=== PATIENT | female | born 1965 | race Caucasian/White ===

== ENCOUNTER 2020-07-17 16:09 | Emergency (ER) | payer BC ==
--- NOTE | 2020-07-17 16:40 | RAD ---
XR Shoulder Rt 3 View STANDARD HISTORY: Injury, right shoulder pain FINDINGS: No fracture or dislocation is identified.
--- NOTE | 2020-07-17 16:44 | RAD ---
Exam: XR Finger(s) Lt Min 2 View HISTORY: Left middle finger deformity after injury. COMPARISON: None FINDINGS: The middle phalanx of the left middle digit is displaced/subluxed laterally and anteriorly with respe ct to the proximal phalanx. No obvious fracture is seen. No other osseous abnormality. IMPRESSION: Mild lateral and anterior displacement/subluxation of the middle phalanx left middle finger in relati on to the proximal phalanx. No obvious fracture is seen.
[2020-07-17] MEDS ORDERED: Lidocaine 1% PF 5 ML VIAL ONE (17:20)
[2020-07-17] MEDS ORDERED: Lidocaine 1% (PF) 30 ML VIAL ONE (17:23)
== END 2020-07-17 18:24 | disposition home or self-care (01) ==
LOC: ERS 16:09
DX: S63.283A Dislocation of proximal interphalangeal joint of left middle finger, initial encounter (principal); S40.011A Contusion of right shoulder, initial encounter; X58.XXXA Exposure to other specified factors, initial encounter
CPT/HCPCS: 26770; J2001